=== PATIENT | female | born 1985 | race Two or more races ===

== ENCOUNTER → 2020-03-23 11:01 | Outpatient (BNVA) | payer OTHER, SELFPAY | PROVIDERS: PCP Internal Medicine; Visit Provider Advanced Practice Midwife | DX: Z30.42 Encounter for surveillance of injectable contraceptive (principal) | CPT/HCPCS: 96372; 99211 ==

== ENCOUNTER → 2020-06-20 13:15 | Outpatient (BNVA) | payer OTHER, SELFPAY | PROVIDERS: PCP Internal Medicine; Visit Provider Advanced Practice Midwife | DX: Z30.42 Encounter for surveillance of injectable contraceptive (principal) | CPT/HCPCS: 96372; 99211; J1050 ==

== ENCOUNTER → 2020-09-11 13:05 | Outpatient (BNVA) | payer OTHER, SELFPAY | PROVIDERS: PCP Internal Medicine; Visit Provider Advanced Practice Midwife | DX: Z30.42 Encounter for surveillance of injectable contraceptive (principal) | CPT/HCPCS: 96372; 99211; J1050 ==

== ENCOUNTER 2021-01-11 13:20 | Outpatient (REF) | payer OTHER, SELFPAY ==
[2021-01-12 05:51] LABS: CT PCR NOT DETECTED (Not Detect.); NG PCR NOT DETECTED (Not Detect.)
[2021-01-15 18:21] LABS: HPV mRNA E6/E7 rflx Not Detected (Not Detected)
== END 2021-01-11 13:21 | disposition home or self-care (01) ==
LOC: HO.LAB 13:20
PROVIDERS: Visit Provider Advanced Practice Midwife
DX: Z01.419 Encounter for gynecological examination (general) (routine) without abnormal findings (principal); Z30.42 Encounter for surveillance of injectable contraceptive; Z11.51 Encounter for screening for human papillomavirus (HPV); Z20.2 Contact with and (suspected) exposure to infections with a predominantly sexual mode of transmission
CPT/HCPCS: 87491; 87591; 87624; 88142; 96372

== ENCOUNTER → 2021-04-04 12:59 | Outpatient (BNVA) | payer OTHER, SELFPAY | PROVIDERS: Visit Provider Advanced Practice Midwife | DX: Z30.42 Encounter for surveillance of injectable contraceptive (principal) | CPT/HCPCS: 96372; 99211 ==

== ENCOUNTER → 2021-07-13 10:08 | Outpatient (BNVA) | payer OTHER, SELFPAY | PROVIDERS: Visit Provider Advanced Practice Midwife | DX: Z30.42 Encounter for surveillance of injectable contraceptive (principal) | CPT/HCPCS: 96372; 99212 ==

== ENCOUNTER → 2021-10-05 10:54 | Outpatient (BNVA) | payer OTHER, SELFPAY | PROVIDERS: Visit Provider Advanced Practice Midwife | DX: Z30.42 Encounter for surveillance of injectable contraceptive (principal) | CPT/HCPCS: 96372; 99211 ==

== ENCOUNTER → 2022-02-13 14:56 | Outpatient (BNVA) | payer OTHER, SELFPAY | PROVIDERS: Visit Provider Advanced Practice Midwife | DX: Z30.42 Encounter for surveillance of injectable contraceptive (principal); F17.210 Nicotine dependence, cigarettes, uncomplicated | CPT/HCPCS: 81025; 96372; 99212 ==

== ENCOUNTER 2024-07-01 10:23 | Outpatient (AMB) | payer OTHER, SELFPAY ==
--- NOTE | 2024-07-01 10:25 | A.OFFVIS_ITS ---
Vital Signs 07/01/24 10:28 Height 5 ft 1 in Weight 131 lb BMI 24.7 BP 92/60 Intake Visit Reasons: control consult [facility] Hospitalist: [facility] Hospitalist Present Allergies No Known Allergies Allergy (Verified 07/01/24 10:26) Is last menstrual period known: Yes Last menstrual period: 06/28/24 HPI Comments Details: Patient is here today for control consult. She has had a lapse in care since 2020. She is interested in control pills. She used Depo in the past but is concerned about the litigation stories she sees on Facebook. Current everyday smoker, half a pack a day, is thinking about quitting. She has not had a mammogram. [facility] Medical History (Updated 07/01/24 @ 10:42 by Salena Perez CNM) control counseling Surgical History H/O hernia repair Family History Maternal Grandmother Breast cancer Maternal Grandfather Colon cancer Social History Alcohol intake: current Alcohol intake frequency: holidays/special occasions only Patient Tobacco Use Status: Current everyday Tobacco user Tobacco use type: Cigarette Cigarettes Per Day: 10 Sexual orientation: Straight/Heterosexual Gender identity: Female Female Reproductive History Menstrual Age of Menarche: 11 Duration of menses: 6-7 days Date of last menstrual period: 06/28/24 control method: none Total pregnancies: 3 Full term: 3 Number of Living Children: 3 Review of Systems Const All systems reviewed & are unremarkable except as noted in HPI and below Endo Reports no additional complaints Physical Exam Vital Signs: Last Vital Signs BP 92/60 07/01/24 10:28 BMI result Body Mass Index 24.7 Const General: cooperative, healthy appearing and no acute distress Psych Appearance: well kempt Attitude: cooperative Thought process: Normal thought process present Assessment & Plan Assessment & Plan (1) control counseling: Code(s): Z30.09 - Encounter for other general counseling and advice on contraception Category: Medical Plan: Discussed options for control-progesterone or nonhormonal options would be the choice with smoking. Reviewed the CDC efficacy chart. Encouraged tobacco cessation. She will schedule follow up annual exam with final decision of control choices, advised to use condoms consistently. If any missed menses to do a home test if positive to report to the office immediately. Mammogram order placed advised to schedule. Schedule annual exam. The patient expressed understanding and agreement with the plan of care. All of her questions and concerns were addressed to the best of my ability. Total time I personally spent on visit and management today: ?20 minutes. Time spent included review of pertinent office notes in the electronic health record; review of laboratory and imaging results; review of personal family medical history; discussing diagnosis and plan of care with the patient; documenting the encounter in the EMR. This note is constructed using voice recognition software. While every effort has been made to ensure accuracy, stretcher helper errors may have been included. (2) Current smoker: Code(s): F17.200 - Nicotine dependence, unspecified, uncomplicated Plan Encouraged tobacco cessation. Orders: Orders MM tomosynthesis screening BI Today Z12.31 - Encounter for screening mammogram for malignant neoplasm of breast Coding Level of Care Code Est Pt Level 3 (34714) Diagnoses control counseling Z30.09 Current smoker F17.200
[2024-07-01 10:28] VITALS: BP 92/60; BMI 24.7
== END 2024-07-01 10:50 | disposition home or self-care (01) ==
LOC: HO.HWS 10:23
PROVIDERS: Visit Provider Advanced Practice Midwife
DX: Z30.09 Encounter for other general counseling and advice on contraception (principal); F17.200 Nicotine dependence, unspecified, uncomplicated
CPT/HCPCS: 99213

== ENCOUNTER → 2024-07-01 10:23 | Outpatient (BNVA) | payer OTHER, SELFPAY | PROVIDERS: Visit Provider Advanced Practice Midwife | DX: Z30.09 Encounter for other general counseling and advice on contraception (principal); F17.210 Nicotine dependence, cigarettes, uncomplicated; Z71.6 Tobacco abuse counseling | CPT/HCPCS: 99212 ==

== ENCOUNTER → 2024-07-23 14:30 | Outpatient (BNV) | payer OTHER, SELFPAY | PROVIDERS: Visit Provider Internal Medicine | DX: Z12.31 Encounter for screening mammogram for malignant neoplasm of breast (principal) | CPT/HCPCS: 77063; 77067 ==

== ENCOUNTER 2024-07-23 14:31 | Outpatient (REF) | payer OTHER, SELFPAY | END 2024-07-23 14:32 | disposition home or self-care (01) | LOC: HO.MAMMO 14:31 | PROVIDERS: Visit Provider Advanced Practice Midwife | DX: Z12.31 Encounter for screening mammogram for malignant neoplasm of breast (principal) | CPT/HCPCS: 77063; 77067 ==

== ENCOUNTER 2024-07-29 14:13 | Outpatient (REF) | payer OTHER, SELFPAY ==
--- OUTSIDE RECORDS SUMMARY | 2024-07-29 18:03 | XMS_ITS | Encounter Summary ---
Author Organization [facility] Address [address] [place] [address] Care Team Providers Care Grade School Teacher Name Role Phone Katarzyna Green MD Primary Care Provider Unavail able Encounter Details Date Type Department Care Team Description 11/07/2016 Release of Information Medical Records [address] [place] [address] Abstract, Provider Social History Tobacco Use Types Packs/Day Years Used Date Smoking Tobacco: Every Day Cigarettes 0.5 10 Alcohol Use Standard Drinks/Week Comments Yes 0 (1 standard drink = 0.6 oz pur e alcohol) Rare Sex Assigned at Date Recorded Not on file documented as of this encounter Plan of Treatment Not on file documented as of this encounter Visit Diagnoses Not on filedocumented in this encounter Care Teams Grade School Teacher Relationship Specialty Start Date End Date Katarzyna Green MD PCP - General Internal Medicine 11/05/16 documented as of this encounter
--- OUTSIDE RECORDS SUMMARY | 2024-07-29 18:03 | XMS_ITS | Clinical Summary ---
Author Organization [facility] Address [address] [place] [address] Care Team Providers Care Sales Center Manager Name Role Phone Katarzyna Green MD Primary Care Provider Unavail able Allergies No known active allergies Medications Medication Sig Dispensed Refills Start Date End Date Status medroxyPROGESTERone (DEPO-PROVERA) 150 MG/ML injection Inject 150 mg into the muscle Every 3 Months. 0 Active Active Problems Problem Noted Date Breast cyst 07/17/2016 Overview: S/p ultrasound guided right breast cyst aspiration at [facility] annual screening mammogram at 38 pathology consistent [...] H RISK PATIENTS (#1) 02/07/2048 Care Teams Sales Center Manager Relationship Specialty Start Date End Date Katarzyna Green MD PCP - General Internal Medicine 11/05/16
== END 2024-07-29 14:14 | disposition home or self-care (01) ==
LOC: HO.LAB 14:13
PROVIDERS: Visit Provider Advanced Practice Midwife
DX: Z01.419 Encounter for gynecological examination (general) (routine) without abnormal findings (principal)
CPT/HCPCS: 99396; 99459

== ENCOUNTER 2024-07-29 14:13 | Outpatient (AMB) | payer OTHER, SELFPAY ==
--- NOTE | 2024-07-29 14:16 | MHC.OFFVIS ---
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 Interested in control pills. Mammography results pending. Regular monthly menses. Currently is sexually active. She denies vaginal itching and irritation. STI screening offered; she accepts. She tries to eat healthy and stays active with exercise. Denies family history of breast, ovarian or colon cancer. Last pap smear 2020, negative. Smoker-plans to quit. She denies any contraindications to control such as: migraines with aura, history of DVT or pulmonary emboli, high blood pressure, liver disease, thrombolic disorders, Lupus, +LOBITO, breast cancer. [facility] Medical History control counseling Surgical History H/O hernia repair Family History Maternal Grandmother Breast cancer Maternal Grandfather Colon cancer Social History Alcohol intake: current Alcohol intake frequency: holidays/special occasions only Patient Tobacco Use Status: Current everyday Tobacco user Tobacco use type: Cigarette Cigarettes Per Day: 10 Sexual orientation: Straight/Heterosexual Gender identity: Female Female Reproductive History Menstrual Age of Menarche: 11 Duration of menses: 3-5 days Date of last menstrual period: 07/15/24 control method: none Total pregnancies: 3 Full term: 3 Number of Living Children: 3 Date of last pap smear: 01/11/21 (neg pap and hpv) Date of Mammogram: 07/23/24 Review of Systems Const All systems reviewed & are unremarkable except as noted in HPI and below Reports as per HPI Eyes Reports no additional complaints ENT Reports no additional complaints Card Reports no additional complaints Resp Reports no additional complaints GI Reports as per HPI and Reports no additional complaints Reports as per HPI Musc Reports no additional complaints Skin/Breast Reports as per HPI Neuro Reports no additional complaints Psych Reports no additional complaints Endo Reports no additional complaints Padilla/Lymph Reports no additional complaints Aller/Immun Reports no additional complaints Physical Exam Vital Signs: Last Vital Signs BP 102/60 07/29/24 14:17 BMI result Body Mass Index 24.6 Const General: cooperative, healthy appearing, no acute distress, well developed and alert Orientation/consciousness: patient oriented x3 HEENT Head: Yes normal to inspection Eyes General: appearance normal, both eyes and all related structures Neck Neck: Yes normal visual inspection Thyroid: Thyroid normal Chest Chest palpation & inspection: normal inspection of the chest and other (no puckering, dimpling, peau de orange, retraction, discharge, masses) Breast/axilla inspection: normal inspection of the breasts Breast/axilla palpation: normal palpation of the breasts Resp Effort & Inspection: normal respiratory effort GI Inspection: Yes normal to inspection Palpation (GI): Soft to palpation Rectal Exam - Female: deferred General: Yes bladder normal to palpation External Female Exam: normal external appearance and normal appearance of the urethra Speculum Exam - Vagina: normal appearance of the vagina, normal palpation and normal vaginal discharge Speculum Exam - Cervix: normal appearance of the cervix and normal palpation Bimanual exam- vagina & uterus: normal bimanual exam, normal palpation, uterine size normal, bladder normal to palpation, normal palpation and non-tender Bimanual Exam- Adnexa, other: no masses Skin General skin exam: no rashes or lesions noted Rashes: no rashes Neuro General: patient oriented x3 Cognition (Neuro): normal cognition Extrem General: Yes normal to inspection Psych Attitude: cooperative Thought process: Normal thought process present Assessment & Plan Assessment & Plan (1) Encounter for annual routine gynecological examination: Code(s): Z01.419 - Encounter for gynecological examination (general) (routine) without abnormal findings Category: Medical Plan Discussed: Current recommendations for pap smears per ASCCP guidelines. Breast awareness and periodic breast exams. Mammogram yearly. Maintain a healthy lifestyle including a well balanced diet and routine exercise. control hormone use warnings: go to ER if and loss of vision, blindness, severe headache, chest pain or difficulty breathing, severe abdominal pain, or any pain or swelling in an extremity. Counseled regarding Lawson use, plan 3 month pill check. Rx at into pharmacy. Strongly recommended to stop smoking. Patient verbalizes understanding and agrees to the plan of care. She was given opportunity to ask questions and all questions were answered to the best of my ability. 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 This note is constructed using voice recognition software. While every effort has been made to ensure accuracy, soda jerker errors may have been included. Orders: Orders Bacterial Vaginosis Panel 07/29/24 Z20.2 - Contact with and (suspected) exposure to infections with a predominantly sexual mode of transmission CT NG by PCR 07/29/24 Z20.2 - Contact with and (suspected) exposure to infections with a predominantly sexual mode of transmission Medications: New norethindrone (contraceptive) (Nicole) 0.35 mg PO DAILY 90 days 90 tabs 0RF Coding Level of Care Code Est Pt Prev Care 40-64y(60165) Diagnoses Encounter for annual routine gynecological examination Z01.419
[2024-07-29 14:17] VITALS: BP 102/60; BMI 24.6
--- OUTSIDE RECORDS SUMMARY | 2024-07-29 17:19 | XMS_ITS | Clinical Summary ---
Author Organization [facility] Address [address] [place] [address] Care Team Providers Care Political Science Chair Name Role Phone Katarzyna Green MD Primary Care Provider Unavail able Allergies No known active allergies Medications Medication Sig Dispensed Refills Start Date End Date Status medroxyPROGESTERone (DEPO-PROVERA) 150 MG/ML injection Inject 150 mg into the muscle Every 3 Months. 0 Active Active Problems Problem Noted Date Breast cyst 07/17/2016 Overview: S/p ultrasound guided right breast cyst aspiration at [facility] annual screening mammogram at 38 pathology consistent with fibroadenoma Umbilical hernia Overview: S/p repair 06/2017 Family History Medical History Relation Name Comments Hypertension Father Diabetes Cancer of the Colon Maternal Grandfather Diagnosed in 70's Cancer of the Breast Maternal Grandmother Diagnosed in 60's Relation Name Status Comments Father Alive Maternal Grandfather Maternal Grandmother Alive Mother Alive Social History Tobacco Use Types Packs/Day Years Used Date Smoking Tobacco: Every Day Cigarettes 0.5 10 Alcohol Use Standard Drinks/Week Comments Yes 0 (1 standard drink = 0.6 oz pur e alcohol) Rare Sex Assigned at Date Recorded Not on file Last Filed Vital Signs Vital Sign Reading Time Taken Comments Blood Pressure 118/70 04/01/2017 9:01 AM EDT Pulse 83 06/17/2017 11:32 AM EST Temperature 36.6 ??C (97.9 ??F) 08/26/2017 10:29 AM E DT Respiratory Rate 16 11/05/2016 2:16 PM EDT Oxygen Saturation - - Inhaled Oxygen Concentration - - Weight 56.7 kg (125 lb) 08/26/2017 10:29 AM EDT Height 156.2 cm (5' 1.5 ) 08/26/2017 10:29 AM ED T Body Mass Index 23.24 08/26/2017 10:29 AM EDT Plan of Treatment Health Maintenance Due Date Last Done Comments Covid-19 Vaccine (#1) 1983 TOBACCO CHECK/ADVISE 2001 DTAP/TDAP/TD (1 - Tdap) 2002 CHOLESTEROL SCREENING 2003 CERVICAL CANCER SCREENING 07/09/20192016 (External Completion), 07/09/2016 BASELINE HEALTH EXAM 40-64 2023 MAMMOGRAM 2023 07/16/2016, 07/12/2016 INFLUENZA (#1) 2024 DEPRESSION SCREENING/FOLLOWUP 06/02/2024 SOCIAL NEEDS SCREENING 06/02/2024 PNEUMOCOCCAL VACCINE FOR HIG H RISK PATIENTS (#1) 02/07/2048 Care Teams Political Science Chair Relationship Specialty Start Date End Date Katarzyna Green MD PCP - General Internal Medicine 11/05/16
== END 2024-07-29 14:59 | disposition home or self-care (01) ==
PROVIDERS: Visit Provider Advanced Practice Midwife
DX: Z01.419 Encounter for gynecological examination (general) (routine) without abnormal findings (principal)
CPT/HCPCS: 99396; 99459

== ENCOUNTER 2024-07-29 14:13 | Outpatient (REF) | payer OTHER, SELFPAY ==
[2024-07-30 11:54] LABS: Bacterial Vaginosis PCR POSITIVE (Negative); Candida Group PCR NOT DETECTED (Not Detect); Candida glab krusei PCR NOT DETECTED (Not Detect); Trichomonas vaginalis PCR NOT DETECTED (Not Detect)
[2024-07-30 12:27] LABS: CT PCR NOT DETECTED (Not Detect.); NG PCR NOT DETECTED (Not Detect.)
== END 2024-07-29 14:14 | disposition home or self-care (01) ==
LOC: HO.LNP 14:13
PROVIDERS: Visit Provider Advanced Practice Midwife
DX: Z20.2 Contact with and (suspected) exposure to infections with a predominantly sexual mode of transmission (principal)
CPT/HCPCS: 81515; 87491; 87591

== ENCOUNTER 2024-07-29 14:47 | Outpatient (REF) | payer OTHER, SELFPAY | END 2024-07-29 14:48 | disposition home or self-care (01) | LOC: HO.LNP 14:47 | PROVIDERS: Visit Provider Advanced Practice Midwife | DX: Z13.89 Encounter for screening for other disorder (principal) ==

== ENCOUNTER → 2024-10-28 15:28 | Outpatient (BNVA) | payer OTHER, SELFPAY | PROVIDERS: Visit Provider Advanced Practice Midwife | DX: Z30.41 Encounter for surveillance of contraceptive pills (principal); F17.210 Nicotine dependence, cigarettes, uncomplicated | CPT/HCPCS: 99212 ==